=== PATIENT | female | born 1980 | race Two or more races ===

== ENCOUNTER 2018-01-22 09:44 | Inpatient (IN) | payer OTHER ==
[~2018-01-22] VITALS: Ht 154.9 cm; Wt 134.5 kg
[2018-01-30] MEDS ORDERED: AMPICILLIN 2 GM in SODIUM CHLORIDE 0.9% 100 ML IVPB STA (21:03)
[2018-01-30] MEDS ORDERED: OXYTOCIN 30U/ 0.9% NaCL 500ML 500 ML IV ONE (21:03)
[2018-01-30] MEDS ORDERED: NEWBORN KIT ONE (21:04)
[2018-01-30] MEDS ORDERED: MISOPROSTOL 200 MCG TABLET ONE (21:05)
[2018-01-30 21:28] LABS: BASOPHILS # (AUTO) 0.02 x10^3/uL (0-0.1); BASOPHILS % (AUTO) 0 % (0-1); EOSINOPHILS # (AUTO) 0.07 x10^3/uL (0-0.4); EOSINOPHILS % (AUTO) 1 % (1-7); LYMPHOCYTES # (AUTO) 1.42 x10^3/uL (1-3.4); LYMPHOCYTES % (AUTO) 19 % (22-44); MD NO; MEAN CORPUSCULAR HEMOGLOBIN 26.7 pg (27.0-34.8); MEAN CORPUSCULAR HGB CONC 33.4 g/dL (32.4-35.8); MEAN CORPUSCULAR VOLUME 79.9 fL (80-100); MEAN PLATELET VOLUME 10.8 fL (7.4-10.4); MONOCYTES # (AUTO) 0.67 x10^3/uL (0.2-0.8); MONOCYTES % (AUTO) 9 % (2-9); NEUTROPHILS # (AUTO) 5.34 x10^3/uL (1.8-6.8); NEUTROPHILS % (AUTO) 71 % (42-75); PLATELET COUNT 203 x10^3/uL (130-400); RED CELL DISTRIBUTION WIDTH 15.7 % (9.6-15.2)
[2018-01-30] MEDS ORDERED: TERBUTALINE 1 MG/ML, 1ML SQ PRN (21:30)
[2018-01-30] MEDS ORDERED: CALCIUM CARBONATE 500 MG TAB.CHEW PO PRN (21:30)
[2018-01-30] MEDS ORDERED: FENTANYL PF 100 MCG/2ML IV PRN (21:30)
[2018-01-30] MEDS ORDERED: METOCLOPRAMIDE 5 MG/ML, 2ML IVPush PRN (21:30)
[2018-01-30] MEDS ORDERED: TERBUTALINE 1 MG/ML, 1ML IVPush PRN ×2 (21:30)
[2018-01-30] MEDS ORDERED: ONDANSETRON 2MG/ML, 2ML IVPush PRN (21:30)
[2018-01-30] MEDS ORDERED: FENTANYL PF 100 MCG/2ML IVPush PRN (21:30)
[2018-01-30] MEDS ORDERED: PLEASE ENTER ALLERGIES MC SCH (21:30)
[2018-01-30] MEDS ORDERED: SODIUM CITRATE/CITRIC ACID 30 ML UDC PO PRN (21:30)
[2018-01-30] MEDS ORDERED: PLEASE ENTER HEIGHT AND WEIGHT MC SCH (21:30)
[2018-01-30] MEDS ORDERED: MISOPROSTOL 25 MCG TABLET VG PRN (21:30)
[2018-01-30] MEDS ORDERED: MAGNESIUM SULF. PMX 20GM/500ML 500 ML IV ONE (22:24)
[2018-01-30] MEDS ORDERED: MISOPROSTOL 25 MCG TABLET ONE (22:24)
[2018-01-30] MEDS ORDERED: MAGNESIUM SULFATE PMX 4GM/100M 100 ML ONE (22:24)
[2018-01-30] MEDS ORDERED: MAGNESIUM SULFATE PMX 4GM/100M 100 ML IVPB ONE (22:30)
[2018-01-30] MEDS ORDERED: CALCIUM GLUCONATE 4.6 MEQ/10 ML IV PRN (22:30)
[2018-01-30 22:56] LABS: ALANINE AMINOTRANSFERASE 9 U/L (12-78); ALBUMIN 2.4 g/dL (3.4-5.0); ANION GAP 10 mmol/L (5-15); CALCIUM 8.5 mg/dL (8.5-10.1); CHLORIDE 107 mmol/L (98-107); CREATININE 0.46 mg/dL (0.55-1.02)
[2018-01-30 22:58] LABS: ALKALINE PHOSPHATASE 132 U/L (45-117); BILIRUBIN,TOTAL 0.2 mg/dL (0.2-1.0); TOTAL PROTEIN 6.8 g/dL (6.4-8.2)
[2018-01-30 23:09] LABS: MICROSCOPIC INDICATED
[2018-01-30] MEDS: LACTATED RINGERS 1,000 ML IV SCH (23:28)
[2018-01-30] MEDS: MAGNESIUM SULF. PMX 20GM/500ML 500 ML IV SCH (23:57)
[2018-01-31] MEDS ORDERED: OXYTOCIN 30U/ 0.9% NaCL 500ML 500 ML ONE (00:47)
[2018-01-31] MEDS ORDERED: OXYTOCIN 30U/ 0.9% NaCL 500ML 500 ML IV PRN (00:51)
[2018-01-31] MEDS: LACTATED RINGERS 1,000 ML IV SCH ×3 (01:08→20:44)
[2018-01-31] MEDS: AMPICILLIN 1 GM in SODIUM CHLORIDE 0.9% 100 ML IVPB SCH ×6 (02:20→21:52)
[2018-01-31] MEDS: D5%-LACTATED RINGERS 1,000 ML IV SCH ×3 (05:03→21:03)
[2018-01-31] MEDS ORDERED: MAGNESIUM SULF. PMX 20GM/500ML 500 ML IV ONE (10:53)
[2018-01-31] MEDS: MAGNESIUM SULF. PMX 20GM/500ML 500 ML IV SCH (10:56)
[2018-01-31] MEDS ORDERED: ONDANSETRON 2MG/ML, 2ML IVPush PRN (16:11)
[2018-01-31] MEDS ORDERED: ONDANSETRON ODT 4 MG PO PRN (16:30)
[2018-01-31] MEDS ORDERED: BUPIVACAINE 0.25% ONE ×2 (19:53→22:03)
[2018-01-31] MEDS ORDERED: FENTANYL/BUPIV./NS/PF 250 ML EPIDCONT ONE ×2 (19:54→19:55)
[2018-01-31] MEDS ORDERED: LIDOCAINE-MPF 1%, 5ML ONE (19:55)
[2018-01-31] MEDS ORDERED: FENTANYL PF 100 MCG/2ML ONE ×2 (19:55→22:30)
[2018-01-31] MEDS ORDERED: FENTANYL/BUPIV./NS/PF 250 ML EPIDCONT SCH (20:15)
[2018-01-31 20:28] VITALS: BP 134/87
[2018-01-31] MEDS ORDERED: LACTATED RINGERS 1,000 ML IVBOLUS PRN (20:30)
[2018-01-31] MEDS ORDERED: LIDOCAINE-MPF 2% ,5ML ONE ×2 (22:46→22:47)
[2018-02-01] MEDS ORDERED: MAGNESIUM SULFATE PMX 4GM/100M 100 ML IVPB ONE (01:00)
[2018-02-01] MEDS ORDERED: FENTANYL PF 100 MCG/2ML ONE (01:10)
[2018-02-01] MEDS ORDERED: BUPIVACAINE 0.25% ONE (01:50)
[2018-02-01] MEDS ORDERED: MAGNESIUM SULF. PMX 20GM/500ML 500 ML IV ONE (02:05)
[2018-02-01 02:14] VITALS: BP_SYST 110; BP_SYST 149; BP_DIAS 56; BP_DIAS 75
[2018-02-01] MEDS: AMPICILLIN 1 GM in SODIUM CHLORIDE 0.9% 100 ML IVPB SCH ×4 (02:32→14:00)
[2018-02-01] MEDS: MAGNESIUM SULF. PMX 20GM/500ML 500 ML IV SCH ×2 (02:33→04:16)
[2018-02-01] MEDS: LACTATED RINGERS 1,000 ML IV SCH ×6 (02:37→16:06)
[2018-02-01] MEDS: D5%-LACTATED RINGERS 1,000 ML IV SCH ×2 (03:08→05:03)
[2018-02-01] MEDS ORDERED: SODIUM CITRATE/CITRIC ACID 30 ML UDC ONE ×2 (05:36→07:20)
[2018-02-01] MEDS ORDERED: METOCLOPRAMIDE 5 MG/ML, 2ML ONE ×2 (05:36→07:20)
[2018-02-01] MEDS ORDERED: LIDOCAINE-MPF 2% ,5ML ONE (07:12)
[2018-02-01] MEDS ORDERED: FENTANYL/BUPIV./NS/PF 250 ML EPIDCONT ONE (07:20)
[2018-02-01] MEDS ORDERED: EPHEDRINE 50 MG/ML, 1ML ONE (07:20)
[2018-02-01] MEDS ORDERED: CEFAZOLIN 1,000 MG ONE (07:20)
[2018-02-01] MEDS ORDERED: OXYTOCIN 10 UNITS/ML, 1ML ONE (07:20)
[2018-02-01] MEDS ORDERED: LACTATED RINGERS 1,000 ML IV SCH (08:06)
[2018-02-01] MEDS ORDERED: OXYTOCIN 30U/ 0.9% NaCL 500ML 500 ML IV SCH (08:06)
[2018-02-01] MEDS ORDERED: OXYcodone 5 MG/5 ML ORAL.SOL UDC PO PRN (08:30)
[2018-02-01] MEDS ORDERED: IBUPROFEN 800 MG TABLET PO PRN (08:30)
[2018-02-01] MEDS ORDERED: ONDANSETRON 2MG/ML, 2ML IV PRN (08:30)
[2018-02-01] MEDS ORDERED: CARBOPROST TROMETHAMINE 250 MCG/ML, 1ML IM PRN (08:30)
[2018-02-01] MEDS: KETOROLAC 30 MG/1 ML IV SCH ×3 (08:30→23:07)
[2018-02-01] MEDS ORDERED: MISOPROSTOL 200 MCG TABLET PR PRN (08:30)
[2018-02-01] MEDS ORDERED: METOCLOPRAMIDE 5 MG/ML, 2ML IV PRN (08:30)
[2018-02-01] MEDS ORDERED: morphine SULFATE 10 MG/ML, 1ML IVPush PRN (08:30)
[2018-02-01] MEDS ORDERED: KETOROLAC 30 MG/1 ML IM SCH (08:30)
[2018-02-01] MEDS ORDERED: ACETAMINOPHEN 325 MG TABLET PO PRN (08:30)
[2018-02-01] MEDS ORDERED: OXYcodone/APAP 5/325MG TABLET PO PRN ×2 (08:30)
[2018-02-01] MEDS ORDERED: OXYcodone 5 MG/5 ML ORAL.SOL UDC ONE (08:32)
[2018-02-01] MEDS: PRENATAL VIT/IRON/FA 1 EACH TABLET PO SCH (09:00)
[2018-02-01 10:30] VITALS: BP 158/74
[2018-02-01 16:00] VITALS: BP 115/62
[2018-02-01 16:08] LABS: BASOPHILS # (AUTO) 0.02 x10^3/uL (0-0.1); BASOPHILS % (AUTO) 0 % (0-1); EOSINOPHILS # (AUTO) 0.02 x10^3/uL (0-0.4); EOSINOPHILS % (AUTO) 0 % (1-7); LYMPHOCYTES % (AUTO) 9 % (22-44); MD NO; MEAN CORPUSCULAR HEMOGLOBIN 26.6 pg (27.0-34.8); MEAN CORPUSCULAR HGB CONC 33.2 g/dL (32.4-35.8); MEAN CORPUSCULAR VOLUME 79.9 fL (80-100); MEAN PLATELET VOLUME 10.1 fL (7.4-10.4); MONOCYTES # (AUTO) 0.79 x10^3/uL (0.2-0.8); MONOCYTES % (AUTO) 6 % (2-9); NEUTROPHILS # (AUTO) 10.75 x10^3/uL (1.8-6.8); NEUTROPHILS % (AUTO) 85 % (42-75); PLATELET COUNT 193 x10^3/uL (130-400); RED BLOOD COUNT 4.17 x10^6/uL (3.82-5.3)
[2018-02-01] MEDS ORDERED: RHOGAM FROM BLOOD BANK 1 NOTE EA IM/IV ONE (18:00)
[2018-02-01 20:25] VITALS: BP 133/85
[2018-02-01 23:45] VITALS: BP 125/86
[2018-02-02] MEDS ORDERED: DIPH,PERTUSS(ACELL),TET VAC/PF NC IM-VACC ONE (00:30)
[2018-02-02 03:45] VITALS: BP 127/82
[2018-02-02] MEDS: KETOROLAC 30 MG/1 ML IV SCH ×4 (05:02→22:55)
[2018-02-02 08:00] VITALS: BP 133/78
[2018-02-02] MEDS ORDERED: DOCUSATE 100 MG CAPSULE ONE (10:54)
[2018-02-02] MEDS: PRENATAL VIT/IRON/FA 1 EACH TABLET PO SCH (11:02)
[2018-02-02] MEDS ORDERED: DOCUSATE 50 MG/5 ML, 10ML UDC PO SCH (11:30)
[2018-02-02 19:45] VITALS: BP 141/85
[2018-02-02] MEDS: DOCUSATE 100 MG CAPSULE PO SCH (22:56)
[2018-02-03] MEDS: IBUPROFEN 600 MG TABLET PO PRN ×2 (06:42→19:40)
[2018-02-03 08:00] VITALS: BP 138/84
[2018-02-03] MEDS: PRENATAL VIT/IRON/FA 1 EACH TABLET PO SCH (09:00)
[2018-02-03] MEDS: DOCUSATE 100 MG CAPSULE PO SCH ×2 (09:00→19:40)
[2018-02-03 19:45] VITALS: BP 122/85
[2018-02-04] MEDS: PRENATAL VIT/IRON/FA 1 EACH TABLET PO SCH (07:29)
[2018-02-04] MEDS: IBUPROFEN 600 MG TABLET PO PRN (07:29)
[2018-02-04] MEDS: DOCUSATE 100 MG CAPSULE PO SCH (07:53)
[2018-02-04 08:00] VITALS: BP 140/74
[2018-02-04] MEDS ORDERED: OXYC-302 PO (09:16)
[2018-02-04] MEDS ORDERED: IBUP-1222 PO (09:16)
== END 2018-02-04 11:43 | disposition home or self-care (01) | DRG 766 ==
LOC: LDIP 01-30 21:00 → 2NW 02-01 10:26
PROVIDERS: ADMIT Obstetrics & Gynecology; ATTEND Obstetrics & Gynecology
PROC: 10D00Z1 Extraction of Products of Conception, Low, Open Approach (ICD-10-PCS; principal; 2018-01-30)
PROC: 30233S1 Transfusion of Nonautologous Globulin into Peripheral Vein, Percutaneous Approach (ICD-10-PCS; 2018-02-01)
DX: O99.824 Streptococcus B carrier state complicating childbirth (principal); O61.9 Failed induction of labor, unspecified; O13.4 Gestational [pregnancy-induced] hypertension without significant proteinuria, complicating childbirth; O48.0 Post-term pregnancy; Z37.0 Single live birth; Z3A.41 41 weeks gestation of pregnancy
CPT/HCPCS: 36415; 80053; 81001; 83735; 84550; 85025; 85461; 86850; 86900; 90715; J0290; J0690; J1885; J2790; J3010; J2590; J2765; J3475; J7120; J7121